=== PATIENT | female | born 1955 ===

== ENCOUNTER 2017-02-04 07:49 | Day surgery (SDC) | payer OTHER ==
[2017-02-04] VITALS (8 sets, daily range): BP systolic 92–114; BP diastolic 43–65
[~2017-02-04] VITALS: Ht 165.1 cm; Wt 81.6 kg
--- NOTE | 2017-02-04 06:11 | Anethesia Preoperative Eval ---
Anesthesia Pre-op PMH/ROS General Date of Evaluation: Feb 04, 2017 Time of Evaluation: 06:11 Anesthesiologist: geo ASA Score: ASA 3 Mallampati Score Class I : Soft palate, uvula, fauces, pillars visible Class II: Soft palate, uvula, fauces visible Class III: Soft palate, base of uvula visible Class IV: Only hard plate visible Mallampati Classification: Class II Surgeon: siddharth Diagnosis: gerd Surgical Procedure: egd/colonoscopy Social History: smoking - former Family History: no anesthesia problems Allergies: Coded Allergies: ACETAMINOPHEN (Verified Allergy, Severe, ITCHING , 02/04/17) HYDROCODONE (Verified Allergy, Severe, ITCHING , 02/04/17) TRAMADOL (Verified Allergy, Severe, SOB, PALPITATIONS, LOSS OF CONSCIOUSNESS, 02/04/17) Medications: see eMAR Past Medical History Pulmonary: Reports: other - pneumonia Gastrointestinal/Genitourinary: Reports: GERD Neurologic/Psychiatric: Reports: depression/anxiety Musculoskeletal/Integumentary: Reports: DDD Anesthesia Pre-op Phys. Exam Physician Exam Constitutional: NAD Neurologic: CN 2-12 intact Cardiovascular: RRR Respiratory: CTA Gastrointestinal: S/NT/ND Airway Exam Mallampati Score: Class II MO: full Neck: supple TMD: 2fb ROM: full Teeth: intact Anesthesia Pre-op A/P Risk Assessment & Plan Assessment: asa3 Plan: mac Status Change Before Surgery: No Pre-Antibiotics Drug: AYANA Hoyt Feb 04, 2017 06:11
[~2017-02-04 07:49] MED LIST: LR 1000ml 1,000 ML IVLG SCH
[2017-02-04] MEDS ORDERED: Propofol 10mg/ml 20ml IV ONE (07:50)
[2017-02-04] MEDS ORDERED: LR 1000ml ONE (07:50)
[2017-02-04] MEDS ORDERED: Lidocaine 1% MPF 10mg/ml 5ml ONE (07:50)
[2017-02-04] MEDS ORDERED: NKM (08:44)
--- NOTE | 2017-02-04 09:05 | Short Stay Surgery H&P ---
History of Present Illness History of Present Illness Chief Complaint Heartburn, dysphagia and abdominal pains HPI Martha Terry is a 61 year old female who was admitted on for Gerd,Ibs Patient History Allergies: Coded Allergies: ACETAMINOPHEN (Verified Allergy, Severe, ITCHING , 02/04/17) HYDROCODONE (Verified Allergy, Severe, ITCHING , 02/04/17) TRAMADOL (Verified Allergy, Severe, SOB, PALPITATIONS, LOSS OF CONSCIOUSNESS, 02/04/17) PAST MEDICAL HISTORY: Past Surgeries: Social History: Medication History Scheduled No Known Medications* (NKM - No Known Medications*), 0 ., (Reported) Review of Systems Cardiovascular: Reports: no symptoms Respiratory: Reports: no symptoms Gastrointestinal: Reports: gastro esophageal reflux disease Genitourinary: Reports: no symptoms Neurologic: Reports: no symptoms Endocrine: Reports: no symptoms Hematologic: Reports: no symptoms Physical Exam Vital Signs Last Vital Signs Date Time Temp Pulse Resp B/P Pulse Ox O2 Delivery O2 Flow Rate FiO2 02/04/17 08:44 97.8 63 18 114/65 97 Room Air Skin: normal HENT: normal Heart: normal Lungs: normal Abdomen: abnormal Extremities: normal Genitourinary: normal Plan Plan of Care Upper and lower GI endoscopies Preop Interventions None. Summary of Findings See the reports Final Diagnosis: Attestation Are the patient's medical conditions optimized for surgery? SEMAJ AKINS Feb 04, 2017 09:05
--- NOTE | 2017-02-04 09:06 | Pre-Procedure Note/Attestation ---
Pre-Procedure Note/Attestation Complete Prior to Procedure Planned Procedure: left Procedure Narrative: Endoscopic exam of the upper and the lower GI tract Indications for Procedure Pre-Operative Diagnosis: R/O Gastritis/colitis. Esophagitis. Attestation I attest that I discussed the nature of the procedure; its benefits; risks and complications; and alternatives (and the risks and benefits of such alternatives ), prior to the procedure, with the patient (or the patient's legal welding equipment sales representative). I attest that, if there was a reasonable possibility of needing a blood transfusion, the patient (or the patient's legal welding equipment sales representative) was given the [place] Department [employer] standardized written summary, pursuant to the [place] Law Blood Safety Act ([place] Health and Safety Code # 1645, as amended). I attest that I re-evaluated the patient just prior to the surgery and that there has been no change in the patient's H&P, except as documented below: TASHISAID Feb 04, 2017 09:06
--- NOTE | 2017-02-04 09:41 | Endoscopy Procedure Note ---
Endoscopy Procedure Note Indication for Procedure: GERDs and abdominal pains and dysphagia Procedures Performed: EGD - small sliding Hiatal Hernia with mild/moderate gastritis. Biopsy obtained from gastric body., colonoscopy - Poor colonic preparation. Highly redundant colon. Diverticulosis of the left coloon. Minimal internal hemorrhoids. Specimen: yes Pt Tolerated Procedure Well: Yes Estimated Blood Loss: none Anesthesiologist: Dr. Palma. Anesthesia: moderate sedation Medication Given: see anesthesia record Implant(s) used?: No 50 yrs or older w/o bx or poly: Yes 10yrs. F/U not recommended: Yes If not recommended, why?: 10 yrs. F/U needed: Yes 18 years or older w/prev. colo: No <3yrs. since last colonoscopy: Yes Med reason:<3 yrs.: System Reason:<3 yrs.: Last colonoscopy >= to 3yrs: Yes SEMAJ AKINS Feb 04, 2017 09:41
--- NOTE | 2017-02-04 09:42 | Discharge Instructions ---
Discharge Instructions Discharge Instructions Follow up with: See the doctor after two weeks in the office. For Congestive Heart Failure Reminder Report to your physician any weight gain of 5 pounds or more in one week. SEMAJ AKINS Feb 04, 2017 09:42
[2017-02-04] MEDS ORDERED: LR 1000ml 1,000 ML IVLG SCH (09:54)
[2017-02-04] MEDS ORDERED: DiphenhydrAMINE 50mg/ml Inj IVP PRN (10:00)
[2017-02-04] MEDS ORDERED: Atropine Inj 1mg/10ml Syr IV PRN (10:00)
[2017-02-04] MEDS ORDERED: Midazolam 2mg/2ml Inj IVP PRN (10:00)
--- NOTE | 2017-02-04 10:05 | Immediate Post-Op Evaluation ---
Immediate Post-Op Evalulation Immediate Post-Op Evalulation Procedure: egd/colonoscopy Date of Evaluation: Feb 04, 2017 Time of Evaluation: 10:04 IV Fluids: lr 300ml Blood Products: none Estimated Blood Loss: negligible Blood Pressure Systolic: 92 Blood Pressure Diastolic: 47 Pulse Rate: 59 Respiratory Rate: 18 O2 Sat by Pulse Oximetry: 100 Temperature (Fahrenheit): 97.7 Pain Score (1-10): 0 Nausea: No Vomiting: No Complications none Patient Status: awake, reacts, patent Hydration Status: adequate Drug: AYANA Hoyt Feb 04, 2017 10:05
--- NOTE | 2017-02-04 10:07 | 48 Hour Post Anesthesia Eval ---
Post Anesthesia Evaluation Procedure: egd/colonoscopy Date of Evaluation: Feb 04, 2017 Time of Evaluation: 10:06 Blood Pressure Systolic: 98 0: 48 Pulse Rate: 59 Respiratory Rate: 18 Temperature (Fahrenheit): 97.7 O2 Sat by Pulse Oximetry: 100 Airway: patent Nausea: No Vomiting: No Pain Intensity: 0 Hydration Status: adequate Cardiopulmonary Status: stable Mental Status/LOC: patient returned to baseline Post-Anesthesia Complications: none Follow-up care needed: N/A AYANA SCHMITT Feb 04, 2017 10:06
--- NOTE | 2017-02-04 14:18 | Operative Note - Dictated ---
DATE OF OPERATION: 02/04/2017 PROCEDURE: Total colonoscopy. REFERRING PHYSICIAN: This patient was referred by Dr. Js Hernandez. PREOPERATIVE DIAGNOSIS: Abdominal pain. POSTOPERATIVE DIAGNOSES: 1. Highly redundant colon. 2. Diverticulosis of the left colon. 3. Minimal internal hemorrhoid. 4. Poor colonic preparation. MEDICATIONS USED: Per anesthesiologist, Dr. Palma. INSTRUMENT: GIF Olympus videocolonoscope. DESCRIPTION OF PROCEDURE: The patient after arriving in the endoscopy unit, was told about risks and benefits of the procedure, which she accepted and signed the informed consent. At this time, she was put on the left lateral decubitus position. After an adequate IV sedation, the scope was gently passed through the anal area, which revealed evidence of minimal internal hemorrhoids on retroflexion maneuver. This was not significant and no friability was seen. At this time, the scope was gradually passed through very redundant left colon, which took significant amount of time to pass through and straightening in the colon. There were areas of numerous diverticular lesions in this area consistent with left colonic diverticulosis, but no evidence of inflammatory process or diverticulitis was seen. There was no polyps or tumors. The colon cleanup was inadequate and there was liquidy stool along the colon making the examination difficult and as such, the presence of small diminutive polypoid lesion could not be ruled out, though there was no any gross polypoid lesion seen at this time. Finally the scope was guided into the transverse colon and gradually towards the hepatic flexure and right colon all the way to the base of the cecum. All these areas remained to be completely normal and no other pathology found. Finally, after reaching to the base of the cecum within 8 minutes, the scope was gradually pulled out and re-evaluation of the colonic wall did not add any other abnormalities other than what is stated earlier. The patient at this point tolerated the procedure well and left the endoscopy room in a good condition. Said Cuate Edmond DR: MERVIN JOB#: [id number] CC:
--- NOTE | 2017-02-04 14:47 | Pre-op HX & Phy Repo 2 SIG ---
DATE OF ADMISSION: 02/04/2017 REFERRING PHYSICIAN: Dr. Js Hernandez. HISTORY OF PRESENT ILLNESS: The patient is a 61-year-old female, who is being seen prior to undergoing the procedure for upper and lower GI endoscopy for which she has been scheduled to receive evaluation of gastrointestinal conditions that she has suffered subsequent to her work injury. The applicant basically complains of the generalized abdominal pain located over upper and lower part of the abdomen, which are intermittent in nature of moderate to severe intensity. She also has been experiencing these symptoms for the past year and a half subsequent to her work injury that occurred at job site, which was basically slip and fall in the parking area while she was working at the [facility] [employer]. The applicant also feels pressure over her chest area associated with symptoms of heartburn and she has been treated with variety of medications including ibuprofen and another nonsteroidal anti-inflammatory agents along with strong analgesics. She does have moderate heartburn as such consistent with GERD. She also complains of occasional difficulty swallowing consistent with dysphagia. She, however, has not had any symptoms of GI bleeding such as hematemesis, melena, hematochezia, etc. She does have history of possible intolerance towards milk. The patient subsequent to work injury also received physical therapy as well. She reports that occasionally the stools are completely yellowish in color. She also has had history of regurgitation. PAST MEDICAL HISTORY: Basically nonsignificant. She has not had any history of diabetes mellitus, hypertension, arthritis, etc. PAST SURGICAL HISTORY: Left toe surgery and left ankle and right knee. ALLERGIES: To tramadol and Vicodin. HABITS: The applicant denies drinking alcohol or smoking cigarettes. FAMILY HISTORY: Not significant. REVIEW OF SYSTEMS: Basically history of present illness. PHYSICAL EXAMINATION: GENERAL: Reveals an alert and well-oriented female, does not seem to be in any acute distress. She is overweight. VITAL SIGNS: Are all stable. HEENT: Normocephalic. Pupils equal in size and reactive to light and accommodation. No jaundice. Buccal cavity, tongue midline, well hydrated. No ulcers. NECK: Supple. No JVD, thyromegaly, or adenopathy. CHEST: Clear to auscultation and percussion. No rales or rhonchi. HEART: S1 and S2 normal. Regular rhythm. No gallops or murmur noted. ABDOMEN: Soft, but generally tender all over the abdomen, particularly over the side and the epigastric area. There is no palpable mass. No organomegaly. Bowel sounds are present. EXTREMITIES: Unremarkable. PRELIMINARY IMPRESSION: 1. Abdominal pain of uncertain etiology, rule out generalized abdominal pain consistent with irritable bowel syndrome. IBS aggravated by underlying significant anxiety and side effects of medications used for the treatment of bowel injury. 2. Gastroesophageal reflux epigastric pain, rule out esophagitis, gastritis caused by NSAID medications. 3. Dysphagia, possibly related to esophageal spasm caused by gastroesophageal acid reflux. 4. caused by NSAID medications. 5. History of injury. Orthopedic diagnosis. RECOMMENDATION: The applicant seems to be stable at this time to undergo the procedure of upper and lower GI endoscopy for which she has been scheduled. She understands the risks and benefits and will sign the consent. Said Cuate Edmond DR: HILARIO JOB#: [id number] CC:
--- NOTE | 2017-02-04 19:45 | Operative Note - Dictated ---
DATE OF OPERATION: 02/04/2017 SURGEON: Savi Edmond M.D. PROCEDURE: Esophagogastroduodenoscopy with biopsy. REFERRING PHYSICIAN: Js eHrnandez M.D. PREOPERATIVE DIAGNOSES: 1. Abdominal pain. 2. Dysphagia. 3. Heartburn. POSTOPERATIVE DIAGNOSES: A small sliding hiatal hernia and mild/moderate gastritis, biopsy was taken from gastric body. MEDICATIONS USED: Per anesthesiologist. INSTRUMENT: GIF Olympus video upper GI endoscope. DESCRIPTION OF PROCEDURE: The patient after arriving at the endoscopy unit, was told about risks and benefits of the procedure, which she accepted and signed the informed consent. At this time, she was put on the left lateral decubitus position. After adequate IV sedation, the scope was gently passed through the cricopharyngeal area, was lodged into the upper esophagus, and gradually advanced towards gastroesophageal junction. The entire length of the esophagus looked normal. No evidence of varices, inflammatory process, ulceration, etc. was found. GE junction also looked normal without any evidence of Singh's, but however there was a very small sliding hiatal hernia, but no other abnormalities or ulcerations. At this time, the scope was advanced into the stomach. Gastric cavity was distended with insufflation of the air. The areas of the fundus and the body and antrum were examined in an middle school teacher fashion. The fundus looked normal, however, upon reaching to the mid body and the antrum of the stomach, there was evidence of inflammatory process consistent with mild/moderate gastritis, but there was no ulcers, tumors, polyps, or bleeding sites. Few biopsies were taken from this area of inflammatory process and subsequently the scope was passed through the antrum, from there into the pylorus. First and second portion of duodenum were found to be completely normal. At this time, the scope was pulled back into the stomach. A retroflexion maneuver was applied. The area of the gastroesophageal junction was examined in a closer fashion, which revealed no other abnormalities. Finally, the scope was pulled out and the procedure was terminated. The patient tolerated the procedure well. Savi Edmond M.D. DR: MERVIN JOB#: [id number] CC:
== END 2017-02-04 11:11 | disposition home or self-care (01) ==
LOC: GAS 07:49
DX: K29.50 Unspecified chronic gastritis without bleeding (principal); K44.9 Diaphragmatic hernia without obstruction or gangrene; K21.9 Gastro-esophageal reflux disease without esophagitis; R13.10 Dysphagia, unspecified; Q43.8 Other specified congenital malformations of intestine; K57.30 Diverticulosis of large intestine without perforation or abscess without bleeding; K64.8 Other hemorrhoids; K58.9 Irritable bowel syndrome, unspecified; E66.3 Overweight; F32.9 Major depressive disorder, single episode, unspecified; F41.9 Anxiety disorder, unspecified; Z87.891 Personal history of nicotine dependence; Z88.6 Allergy status to analgesic agent; Z88.5 Allergy status to narcotic agent
CPT/HCPCS: 43239; 45378; J2704; J7120; 94003; 94150